=== PATIENT | female | born 2000 | race Caucasian/White ===

== ENCOUNTER 2020-06-13 06:23 | Emergency (ER) | payer OTHER ==
[~2020-06-13] VITALS: Ht 162.6 cm; Wt 83.9 kg
[2020-06-13 06:25] VITALS: BP_SYST 137
--- NOTE | 2020-06-13 06:25 | NUR ---
Placed in room 6 . Placed on gambling monitor, blood pressure machine and pulse oximeter. To gown for exam. Side rails up.
--- NOTE | 2020-06-13 06:35 | NUR ---
ER at bedside examining patient.
--- NOTE | 2020-06-13 06:42 | NUR ---
Pt presents to the ER BIBA for anxiety x 1 hour ago. Pt reports smoking friends cigarette which she believes was laced with PCP. Pt is AxOx4, walks steady gait. After smoking the cigarette pt stated feeling anxious and palpations. Pt also reports smoking meth x 1 hour ago. Denies CP, fever, SOB, headche, n/v/d.
--- NOTE | 2020-06-13 06:48 | NUR ---
EKG performed at BS by Malena JAVED . Physician given copy of EKG for review.
--- NOTE | 2020-06-13 07:07 | NUR ---
Report given to JESUS ABLERTO JAVED for continuation of care.
[2020-06-13 07:10] LABS: BARBITURATE, URINE NEGATIVE (NEG <=200); BENZODIAZEPINE, URINE NEGATIVE (NEG <=150); CANNABINOID, URINE NEGATIVE (NEG <=50); COCAINE, URINE NEGATIVE (NEG <=150); METHAMPHETAMINES SCREEN,URINE POSITIVE (NEG <=500); OPIATE, URINE NEGATIVE (NEG <=100); PHENCYCLIDINE SCREEN,URINE POSITIVE (NEG <=25); UR TRICYCLIC ANTIDEPRESSANTS NEGATIVE (NEG <=300); URINE AMPHETAMINE POSITIVE (NEG <=500); URINE METHADONE NEGATIVE (NEG <=200); URINE OXYCODONE SCREEN NEGATIVE (NEG <=100); URINE PROPOXYPHENE SCREEN NEGATIVE (NEG <=300)
--- NOTE | 2020-06-13 07:24 | NUR ---
Pt awake, alert and oriented. Stated "I cant sleep and I am ok, I just want to go home". Pt signed out AMA. No distress noted. VSS
--- NOTE | 2020-06-13 07:29 | NUR ---
Patient given written and verbal discharge instructions and verbalizes understanding. ER MD Brown discussed with patient the results and treatment provided. Patient in stable condition. ID arm band removed. Patient educated on pain management and to follow up with PMD. Pain Scale 0/10. Opportunity for questions provided and answered. Medication side effect fact sheet provided.
[2020-06-13 07:30] VITALS: BP_SYST 123
== END 2020-06-13 07:29 | disposition left against medical advice (07) ==
LOC: SED 06:23
DX: G25.2 Other specified forms of tremor (principal); R00.2 Palpitations; F19.10 Other psychoactive substance abuse, uncomplicated
CPT/HCPCS: 80307; 81025; 93005; 99284

== ENCOUNTER 2021-11-22 23:11 | Emergency (ER) | payer OTHER ==
[~2021-11-22] VITALS: Ht 154.9 cm; Wt 65.8 kg
--- NOTE | 2021-11-22 23:19 | NUR ---
Patient to ER bed 5 to gown for evaluation. Side rails up. Report given to JESUS JAVED.
[2021-11-22 23:20] VITALS: BP_SYST 128
--- NOTE | 2021-11-22 23:20 | NUR ---
ER at bedside examining patient.
--- NOTE | 2021-11-22 23:21 | NUR ---
Note elmer in ED - 11/23/21 at 0616 by CHEN Placed in room 5 . Placed on hall monitor, blood pressure machine and pulse oximeter. To gown for exam. Side rails up. Report given to JESUS JAVED.
--- NOTE | 2021-11-22 23:28 | NUR ---
PT AOX4, AMBULATORY WITH STEADY GAIT BROUGHT IN BY AMBULANCE WITH COMPLAINT OF SHARP ABDOMINAL PAIN 10/10, WITH DIARRHEA, NAUSEA AND VOMITING DUE TO WITHDRAWEL SYMPTOMS OF METHAMPHETAMINE, FENTANYL, BENZODIAZEPINES, AND HEROIN FOR THE LAST THREE DAYS. PT REPORTS SMOKING METH TODAY AND HAVING A POSITIVE TEST RECENTLY. PT REPORTS HX OF ANXIETY AND NO OTHER PERTINENT HEALTH HISTORY. PT IS AUDIBLY CRYING AND STATES SHE IS AFRAID. MD AT THE BEDSIDE FOR EVALUATION. VITAL SIGNS STABLE. WILL MONITOR CLOSELY.
[2021-11-22] MEDS ORDERED: ONDANSETRON HCL 4 MG/2 ML VIAL IVP ONE (23:30)
[2021-11-22] MEDS ORDERED: ACETAMINOPHEN 500 MG TABLET PO ONE (23:30)
[2021-11-22] MEDS ORDERED: NACL 0.9% 1,000 ML IV ONE (23:30)
[2021-11-22] MEDS ORDERED: cloNIDine HCL 0.1 MG TABLET PO ONE (23:30)
[2021-11-23 00:27] LABS: COLOR,URINE YELLOW (YELLOW)
[2021-11-23 00:28] LABS: CLARITY/URINE SLIGHTLY CLOUDY (CLEAR)
[2021-11-23 00:30] LABS: GLUCOSE,URINE NEGATIVE (NEGATIVE); KETONES,URINE 1+ (NEGATIVE); PH,URINE 8.5 (5.0-8.0); PROTEIN URINE 2+ (NEGATIVE)
[2021-11-23 00:31] LABS: BILIRUBIN,URINE NEGATIVE (NEGATIVE); BLOOD, URINE NEGATIVE (NEGATIVE); NITRITE, URINE POSITIVE (NEGATIVE)
[2021-11-23 00:32] LABS: LEUKOCYTE ESTERASE ,URINE 2+ (NEGATIVE); UROBILINOGEN,URINE 0.2 (0.2-1.0)
[2021-11-23 00:54] LABS: BASOPHILS % (AUTO) 0.6 % (0.0-2.0); EOSINOPHILS # (AUTO) 0.1 K/uL (0.0-0.4); EOSINOPHILS % (AUTO) 1.7 % (0.0-4.0); HEMATOCRIT 38.2 % (36-48); HEMOGLOBIN 12.9 g/dL (12.0-16.0); LYMPHOCYTES # (AUTO) 1.5 K/uL (1.0-5.5); LYMPHOCYTES % (AUTO) 27.7 % (20.5-51.5); MEAN CORPUSCULAR HEMOGLOBIN 28 pg (27-31); MEAN CORPUSCULAR HGB CONC 34 % (32-36); MEAN CORPUSCULAR VOLUME 83 fL (79.0-98.0); MONOCYTES % (AUTO) 18.9 % (1.7-9.3); NEUTROPHILS # (AUTO) 2.8 K/uL (1.8-7.7); NEUTROPHILS % (AUTO) 51.1 % (40.0-70.0); PLATELET COUNT (AUTO) 263 K/uL (130-430); RED BLOOD CELL COUNT(AUTO) 4.62 MIL/uL (4.2-6.2); RED CELL DISTRIBUTION WIDTH 14.2 % (9.0-15.0); WHITE BLOOD COUNT (AUTO) 5.4 K/uL (4.8-10.8)
[2021-11-23] MEDS ORDERED: cefTRIAXone 1 GM IVPB PREMIX 50 ML IV ONE ×2 (01:00→01:32)
[2021-11-23 01:56] LABS: ALBUMIN 2.9 g/dL (3.4-4.8); CALCIUM 7.1 mg/dL (8.4-11.0); CREATININE 0.64 mg/dL (0.55-1.30); TOTAL BILIRUBIN 0.3 mg/dL (0.0-1.0)
[2021-11-23 02:05] LABS: POTASSIUM 2.5 mmol/L (3.5-5.1)
--- NOTE | 2021-11-23 02:09 | NUR ---
PT IN BED, RESTING WITH EYES CLOSED. EASILY AROUSABLE WITH VERBLE STIMULI. PT REPORTS WANTING TO GO BACK TO THE PLACE WHERE SHE "SLEEPS OUTSIDE". UNSURE OF EXACT LOCATION. PENDING DISPOSITION. WILL MONITOR NEEDED
[2021-11-23] MEDS ORDERED: CEPH-548 PO ×2 (02:10→04:02)
[2021-11-23] MEDS ORDERED: POTASSIUM CHLORIDE 20 MEQ/PKT PACKET PO ONE (02:15)
--- NOTE | 2021-11-23 03:23 | NUR ---
PT NOTIFIED OF DISCHARGE, PROVIDED WITH DISCHARGE DOCUMENTAION AND NEW PRESCRIPTION. PT REQUESTING RIDE TO WHERE SHE IS STAYING. IV REMOVED WITH CATHETER INTACT, GAUZE PLACED ON SITE. ENCOURAGED PT TO HOOP PUNCH OPERATOR HELPER PRESCRIPTION AND TO FOLLOW UP WITH PRIMARY CARE DOCTOR. PT DISCHARGED IN STABLE CONDITION, AMBULATORY WITH STEADY GAIT, PROVIDED A TURKEY SANDWICH, TWO JUICES, AND WITH ALL BELONGINGS. ALL QUESTIONS ANSWERED
[2021-11-23 03:25] VITALS: BP_SYST 126
[2021-11-23 04:16] LABS: RBC,URINE 0-3 /HPF (0-3); WBC,URINE 50-80 /HPF (0-3)
[2021-11-23 04:18] LABS: BACTERIA,URINE MODERATE /HPF (None Seen); MUCUS,URINE 2+ /LPF (None Seen)
[2021-11-23 06:15] LABS: URINE SULFO SALICYLIC ACID NEGATIVE (NEGATIVE)
== END 2021-11-23 03:25 | disposition home or self-care (01) ==
LOC: SED 23:11
DX: F11.23 Opioid dependence with withdrawal (principal); E87.6 Hypokalemia; N39.0 Urinary tract infection, site not specified
CPT/HCPCS: 36415; 74176; 76376; 80053; 81000; 81025; 83690; 84703; 85025; 87086; 96361; 96365; 96375; 99284; J0696; J2405; J7030